=== PATIENT | female | born 1980 | race Caucasian/White ===

== ENCOUNTER 2023-03-20 11:25 | Inpatient (IN) | payer OTHER, SELFPAY ==
[2023-03-20] VITALS (13 sets, daily range): BP systolic 100–141; BP diastolic 52–83; PULSE 61–98; RESP 16–20; TEMP 36.1–36.7; O2SAT 93–97
[2023-03-20] MEDS: Lactated Ringers 1,000 ML 999 ML IV (11:40)
--- NOTE | 2023-03-20 11:45 | HP.PCM.OB_ITS ---
HPI - General General Date of Admission: 03/20/23 HPI Narrative TAB CORNEJO, is a 42 y/o @ 38 weeks 3 days (based on us and LMP) who presents to L&D in active labor and history of prior section, no care in [place]. Pt states that she tried calling different doctor's offices when she moved from [place] and no one would take her because she was too late or offices were already at max capacity for March deliveries. She had a prior section for face presentation. No op note is available. Pt is yelling and crying in extreme pain and asking for us to knock her out or give her an epidural. Between contractions she is able to tell us that she found a dula for her pregn katelyn since a doctor's office would not take her. She does not have a plan for however. PFSH PFSH Allergy/AdvReac Type Severity Reaction Status Date / Time gabapentin Allergy Rash Verified 03/20/23 11:51 ROS Constitutional Constitutional: Denies change in weight, fatigue, fever(s), headache(s), poor appetite or weakness Eyes Eyes: Denies blurry vision, change in vision, seeing flashes or spots in vision ENT HEENT: Denies dizziness, headache(s), loss taste/smell or sore throat Cardiovascular Cardiovascular: Denies chest pain, dizziness, dyspnea, irregular heart rhythm, leg edema, palpitations, rapid heart rate or vomiting Respiratory/Chest Respiratory/Chest: Denies chest tightness, cough, dyspnea or breast pain Gastrointestinal Gastrointestinal: Denies abdominal pain, anorexia, constipation, cramping, diarrhea, hemorrhoids, vomiting or weight changes Genitourinary Genitourinary: Denies dysuria, flank pain, genital lesions, genital pain, urinary frequency or urinary urgency Musculoskeletal Musculoskeletal: Denies back pain, difficulty walking, joint pain, limited range of motion, muscle cramps or numbness Integumentary Integumentary: Denies lesions or unusual bruising Neurologic Neurologic: Denies abnormal movements, abnormal speech, dizziness, numbness, seizure-like activity or syncope Psychiatric Psychiatric: Denies anxiety, behavioral changes, change in appetite, change in libido, cognitive impairment, confusion, depression, difficulty concentrating, hallucinations or suicidal thoughts Endocrine Endocrinology: Denies excessive sweating, polydipsia or polyuria Hematologic/Lymphatic Hematologic/Lymphatic: Denies easy bleeding, easy bruising or lymphadenopathy Allergic/Immunologic Allergic/Immunologic: Denies itchy eyes, lip swelling, seasonal rhinorrhea, rhinitis, throat swelling, tongue swelling, eczemia, wheezing or asthma Physical Exam Const alert, oriented x3, no apparent distress and healthy appearing General Appearance: cooperative; Negative for anxious HEENT normocephalic Face and Sinus: normal facial exam Eyes EOMs intact bilaterally and no scleral icterus General Eye: normal appearance of both eyes Neck full ROM and supple Lymph Lymphatic: no lymphadenopathy noted Chest Chest: abnormal inspection of the chest Resp normal respiratory effort Effort and Inspection: able to speak in complete sentences Cardio regular rate GI soft to palpation and non-tender Inspection: gravid Palpation: soft; Negative for tender external exam normal Amniotic Fluid: other cx is 1.5/70/-1 vertex on bedside scan. Back/Spine no CVA tenderness Extremity normal to inspection, full ROM and no clubbing, cyanosis or edema General Extremity: Negative for calf tenderness or edema Skin Lesions: no lesions Rashes: no rashes Psych mental status grossly normal Labs Labs Labs: No Data to Display Assessment & Plan (1) History of section complicating : (2) Poor patient attendance of care: (3) 38 weeks gestation of : (4) Active labor at term: PLAN: Plan Plan for urgent section now for active painful labor and unknown uterine scar, remote from delivery with suspicion for either a low pain tolerance or uterine rupture/abruption based on pain. The tracing at this time is reassuring and contractions are q 2 minutes apart. -ancef 2 grams ordered - will need ob labs and peds at delivery -pt denies h/o drug use
[2023-03-20] MEDS: Cefazolin 2 GM in 0.9% Normal Saline 100 ML IV (12:12)
[2023-03-20 12:27] LABS: Absolute Lymphocyte Count 2.09 X10^3/uL (0.83-4.51); Absolute Neutrophil Count 6.7 X10^3/uL (2.0-7.7); Basophil# 0.05 X10^3/uL; Basophil% 0.5 % (0-1); Eosinophil# 0.04 X10^3/uL; Eosinophils% 0.4 % (0-5); Hemoglobin 14.5 g/dL (12.0-15.0); Lymphocyte # 2.09 X10^3/ul (0.83-4.51); Lymphocyte % 21.7 % (19-41); Mean Corp Hgb Conc 32.2 g/dL (32-36); Mean Corpuscular Hgb 30.8 pg (27.0-32.0); Mean Corpuscular Volume 95.5 fL (81-99); Mean Platelet Vol. 11.9 fl (6.2-12.0); Monocyte# 0.66 X10^3/uL; Monocyte% 6.8 % (0-10); NRBC Flagged by Analyzer 0 % (0-5); Neutrophil # 6.66 X10^3/uL (2.7-7.7); Neutrophil % 69.1 % (47-70); Platelet Count 204 K/mm3 (150-450); RBC Distribution Width CV 13.6 % (11.6-14.6); RBC Distribution Width SD 47.9 fl (35.1-43.9); Red Blood Count 4.71 M/mm3 (4.2-5.4); White Blood Count 9.6 K/mm3 (4.4-11.0)
--- NOTE | 2023-03-20 12:59 | EX.PCM.OBRPT ---
Assessment & Plan (1) Active labor at term: (2) 38 weeks gestation of : (3) Poor patient attendance of care: (4) History of section complicating : Details Operative Information Date of Procedure: 03/20/23 Pre-Operative Diagnosis: 42 y/o @ 38 weeks 3 days, limited care, prior section, painful contractions Post-Operative Diagnosis: 42 y/o @ 38 weeks 3 days, limited care, prior section, painful contractions Classification: DISHA Procedure Type: low transverse iron setter #1: Fernanda Gavin Type of Anesthesia: General Antibiotic Given: Ancef 2 grams IV x1 Drain: Blake to straight drain Estimated Blood Loss: 400cc Findings Description of Procedure: The patient presented to labor and delivery with painful contractions every 1-2 minutes. She did not have care in our community and stated that she moved here from [place] and could not find a doctor. Her plan was to have a dula help her at home until she went into labor and her plan was to go to the nearest hospital for a repeat section. She was screaming in pain and asking for help over an over while holding her lower abdomen. She requested that someone would push on her lower abdomen for relief. The tracing was a category 1 and her cervix was noted to be 1.5 cm dilated, 70% effaced and -1 station, however due to her pain the suspicion for uterine rupture or abruption could not be ruled out. Bedside scan was performed and was inconclusive for seeing the lower uterine segment clear enough due to the patient pain level and inability to lay flat and still. A vertex presentation was noted. Her gestational age was determined by an early ultrasound and consistent with her LMP, per the patient, while in [place]. The decision was to proceed urgent to the operating room for a section. Surgery details: The patient was placed in the dorsal supine position with leftward tilt. A blake catheter was placed. Patient was prepped and draped with a splash of betadine covering the abdomen and vagina. General anesthesia was administered and a Pfannenstiel skin incision was made with the scalpel and carried through to the underlying layer of fascia with the scalpel. Fascia was carefully incised using the same scalpel. The rectus bellies were dissected off superiorly and inferiorly with out complication both sharply and bluntly. The peritoneum was entered digitally. The incision was stretched slightly and a bladder flap was created and dissected. A low transverse uterine incision was made approximately 4 cm higher than the bladder dissection with the scalpel. The 's head was delivered atraumatically followed by the anterior and posterior shoulders without complication the rest of the delivered. The cord was clamped and cut and the infant was handed off to awaiting nurse. The placenta was delivered spontaneously immediately following and was noted to be intact and have a three-vessel cord. The uterus was exteriorized cleared of all clots and debris, and the incision was closed in a double layer closure using #1 Vicryl and #1 Monocryl. The ovaries and fallopian tubes were noted to be within normal limits. Clots and debris were removed from the lower pelvis and there was noted to be a tear 4 cm inferior to the uterine incision and closer site. The tear was noted in the peritoneium overlying the bladder and with further careful inspection there was noted to be a tear that was less than a millimeter in size. The bladder tear was repaired with a 3-0 vicryl figure of 8 fashion followed by an imbricated suture. The peritoneum was repaired using a 3-0 vicryl over the bladder site and the bladder was back filled with sterile saline. The bladder was noted to be water tight. The uterus was returned to the maternal abdomen and gutters were cleared of all clots and debris. The peritoneum was closed with 3-0 Monocryl in a running fashion. Gloves were changed prior to fascial closure. Fascia was closed with 0 PDS in a running fashion. Subcutaneous tissue was copiously irrigated and the skin was closed with 3-0 Monocryl in a subcuticular fashion. Mepilex dressing was applied without complication. Patient was taken to recovery in stable condition. It was discussed with the patient that based on the clinical information obtained during this encounter, combined with her history, at this time I would recommend professional care and repeat section for future deliveries if further pregnancies are desired. Presentation: Positive for Vertex Amniotic Membrane Rupture Type: Artificial Amniotic Fluid Description: Clear Placental Delivery Description: Manual Removal Placenta Disposition: Sent to Pathology Cord Vessel Description: 3 Vessels Cord Entanglement: None A Gender: Female (1 minute): 8 (5 minute): 9 Complications Risks of Surgery Discussed w/Patient: Bleeding, Anesthesia Risks, Infection and Injury to surrounding structure(s) including bowel and bladder Multi Select Codes Urinary/Genital Urinary/Genital CPT Codes: 41659 delivery only
[2023-03-20] MEDS: Oxytocin 15 Units/NS 250ml 15 UNITS/250 ML IV.SOLN 83 UNITS IV (13:25)
[2023-03-20] MEDS: Ketorolac 30 MG/ML Syringe IV ×2 (13:47→19:54)
[2023-03-20] MEDS: 0.9% Saline Lock 10 ML Syringe IV ×2 (13:47→13:52)
[2023-03-20] MEDS: Acetaminophen 500 MG Tablet 1000 MG PO ×2 (13:48→19:53)
[2023-03-20] MEDS: HYDROmorphone 1 MG/ML Syringe IV ×2 (13:52→17:17)
[2023-03-20] MEDS: Lactated Ringers 1,000 ML 150 ML IV (16:35)
--- NOTE | 2023-03-20 17:46 | NURSING ---
1744-hx of thc use during college years, and has medical marijuana use card was using this for her neck prior to last use 2021 prior to
[2023-03-20 18:38] LABS: Syphilis Antibodies Non-reactive
[2023-03-20 19:00] LABS: Hepatitis C Antibody Non-Reactive (Nonreactive)
[2023-03-20] MEDS: Lactated Ringers 1,000 ML 100 ML IV (19:53)
[2023-03-20] MEDS: Nitrofurantoin Macrocrystals 100 MG Capsule PO (20:44)
[2023-03-20] MEDS: Senna/Docusate Sodium 1 Tablet PO (22:34)
[2023-03-20] MEDS: oxyCODONE 5 MG Tablet PO (22:35)
[2023-03-21 00:20] VITALS: BP 113/70; PULSE 67; RESP 20
[2023-03-21] MEDS: Acetaminophen 500 MG Tablet 1000 MG PO ×4 (02:08→19:52)
[2023-03-21] MEDS: Ketorolac 30 MG/ML Syringe IV (02:09)
[2023-03-21 05:23] VITALS: BP 113/64; PULSE 64; RESP 18
[2023-03-21 05:41] LABS: Hemoglobin 11.5 g/dL (12.0-15.0); Mean Corp Hgb Conc 33.8 g/dL (32-36); Mean Corpuscular Hgb 30.7 pg (27.0-32.0); Mean Corpuscular Volume 90.9 fL (81-99); Mean Platelet Vol. 11.5 fl (6.2-12.0); Platelet Count 192 K/mm3 (150-450); RBC Distribution Width CV 13.6 % (11.6-14.6); RBC Distribution Width SD 44.8 fl (35.1-43.9); Red Blood Count 3.74 M/mm3 (4.2-5.4); White Blood Count 13.5 K/mm3 (4.4-11.0)
--- NOTE | 2023-03-21 08:46 | PCM.PN.OB ---
Subjective Subjective Patient is laying in bed comfortably without complaints. She states that she slept on an off during the night. Lochia is mild and pain is minimal. The situation with her bladder was discussed and patient states that she feels much more comfortable knowing what happened. Objective Data Objective Data Vital Signs: Vital Signs Temp Pulse Resp BP Pulse Ox O2 Del Method 97.3 F L 77 18 100/55 L 96 Room Air 03/22/23 01:19 03/22/23 01:19 03/22/23 01:19 03/22/23 01:19 03/22/23 01:19 03/22/23 01:19 Oxygen Delivery Method Room Air Intake & Output: Intake and Output for Last 24 Hours 03/20/23 03/21/23 03/22/23 23:59 23:59 23:59 Intake Total 3002.5 / 3002.5 1042.5 / 1042.5 Output Total 995 / 995 5700 / 5700 500 / 500 Balance 2006.5 / 2006.5 -4657.5 / -4657.5 -500 / -500 Lab / Micro Data Result Diagrams: 03/21/23 05:30 ROS Constitutional Constitutional: Reports systems reviewed and no addt'l complaints, except as documented Cardiovascular Cardiovascular: Denies chest pain, dizziness, dyspnea or irregular heart rhythm Respiratory/Chest Respiratory/Chest: Denies cough, pain on inspiration or shortness of breath at rest Gastrointestinal Gastrointestinal: Denies abdominal pain, nausea or vomiting Genitourinary Genitourinary: Denies burning urination Musculoskeletal Musculoskeletal: Denies muscle cramps, muscle spasms or muscle weakness Neurologic Neurologic: Denies confusion, dizziness, headache(s) or lack of coordination Psychiatric Psychiatric: Denies anxiety, behavioral changes or depression Physical Exam HEENT normocephalic Resp normal respiratory effort and normal air movement GI soft to palpation, non-tender and non-distended Rectal Exam: other Other Details: Incision is clean, dry, and intact no CVA tenderness Extremity normal to inspection General Extremity: edema bilateral (trace ) Assessment & Plan (1) History of section complicating : (2) Poor patient attendance of care: (3) Active labor at term: (4) 38 weeks gestation of : (5) Status post delivery: COMMENT: bladder rupture during labor- catheter in place until cystogram at 10 days post PLAN: Plan s/p LTCS PPD # 1 1. routine post care. maintain blake 2. breast feeding- support given 3. rh positive 4. rubella immune
[2023-03-21 09:12] VITALS: BP 105/61; PULSE 69; RESP 16; TEMP 37.1; O2SAT 95
[2023-03-21] MEDS: Senna/Docusate Sodium 1 Tablet PO (09:24)
[2023-03-21] MEDS: Nitrofurantoin Macrocrystals 100 MG Capsule PO (09:24)
[2023-03-21] MEDS: 0.9% Saline Lock 10 ML Syringe IV (09:25)
[2023-03-21] MEDS: Naproxen 500 MG Tablet PO ×2 (09:58→18:33)
[2023-03-21 11:04] VITALS: BP 105/59; PULSE 75; RESP 18; TEMP 36.5; O2SAT 96
[2023-03-21 13:08] VITALS: BP 105/50; PULSE 69; RESP 18; TEMP 37.3; O2SAT 96
[2023-03-21] MEDS: oxyCODONE 5 MG Tablet PO (13:29)
[2023-03-21 19:57] VITALS: BP 129/72; PULSE 74; RESP 18; TEMP 36.7; O2SAT 96
[2023-03-22] MEDS: oxyCODONE 5 MG Tablet PO ×5 (01:07→23:07)
[2023-03-22 01:19] VITALS: BP 100/55; PULSE 77; RESP 18; TEMP 36.3; O2SAT 96
[2023-03-22] MEDS: Acetaminophen 500 MG Tablet 1000 MG PO ×4 (01:32→20:54)
[2023-03-22] MEDS: Naproxen 500 MG Tablet PO ×3 (01:33→18:34)
[2023-03-22] MEDS: Nitrofurantoin Macrocrystals 100 MG Capsule PO (08:41)
[2023-03-22] MEDS: Senna/Docusate Sodium 1 Tablet PO (08:41)
[2023-03-22] MEDS: MENTHOL 226.8 GM JAR 1 APPLIC TOPICAL (08:43)
[2023-03-22 08:47] VITALS: BP 97/58; PULSE 89; RESP 18; TEMP 37.1; O2SAT 97
--- NOTE | 2023-03-22 08:48 | PCM.PN.OB ---
Subjective Subjective Patient is laying in bed comfortably without complaints. She states that she slept on an off during the night. Lochia is mild and pain is minimal. She wants to stay another night due to right lower quadrant fascial site pain. Her also has a sore throat, vomiting, and diarrhea and can not help take care of her or baby Objective Data Objective Data Vital Signs: Vital Signs Temp Pulse Resp BP Pulse Ox O2 Del Method 98.7 F 89 18 97/58 L 97 Room Air 03/22/23 08:47 03/22/23 08:47 03/22/23 08:47 03/22/23 08:47 03/22/23 08:47 03/22/23 08:47 Oxygen Delivery Method Room Air Intake & Output: Intake and Output for Last 24 Hours 03/20/23 03/21/23 03/22/23 23:59 23:59 23:59 Intake Total 3002.5 / 3002.5 1042.5 / 1042.5 Output Total 995 / 995 5700 / 5700 500 / 500 Balance 2006. / 2006.5 -4657.5 / -4657.5 -500 / -500 Lab / Micro Data Result Diagrams: 03/21/23 05:30 ROS Constitutional Constitutional: Reports systems reviewed and no addt'l complaints, except as documented Cardiovascular Cardiovascular: Denies chest pain, dizziness, dyspnea or irregular heart rhythm Respiratory/Chest Respiratory/Chest: Denies cough, pain on inspiration or shortness of breath at rest Gastrointestinal Gastrointestinal: Denies abdominal pain, nausea or vomiting Genitourinary Genitourinary: Denies burning urination Musculoskeletal Musculoskeletal: Denies muscle cramps, muscle spasms or muscle weakness Neurologic Neurologic: Denies confusion, dizziness, headache(s) or lack of coordination Psychiatric Psychiatric: Denies anxiety, behavioral changes or depression Physical Exam HEENT normocephalic Resp normal respiratory effort and normal air movement GI soft to palpation, non-tender and non-distended Rectal Exam: other Other Details: Incision is clean, dry, and intact no CVA tenderness Extremity normal to inspection General Extremity: edema bilateral (trace ) Assessment & Plan (1) Status post delivery: COMMENT: bladder rupture during labor- catheter in place until cystogram at 10 days post (2) History of section complicating : (3) Poor patient attendance of care: (4) 38 weeks gestation of : (5) Active labor at term: PLAN: Plan s/p LTCS PPD #2 1. routine post care 2. breast feeding- support given 3. rh positive 4. rubella immune 5. maintain blake, will order cystogram in 9 days 6. dc to home tomorrow 7. use of ice and percocet/motrin for pain.
[2023-03-22 15:00] VITALS: BP 118/71; PULSE 83; RESP 16; TEMP 36.1; O2SAT 96
[2023-03-22 21:15] VITALS: BP 113/68; PULSE 80; RESP 14; TEMP 36.5
[2023-03-23] MEDS: Naproxen 500 MG Tablet PO ×3 (02:01→18:20)
[2023-03-23] MEDS: Acetaminophen 500 MG Tablet 1000 MG PO ×3 (02:04→15:14)
[2023-03-23 04:37] VITALS: BP 120/66; PULSE 71; RESP 18; TEMP 36.4
[2023-03-23] MEDS: oxyCODONE 5 MG Tablet PO ×4 (05:26→18:21)
--- NOTE | 2023-03-23 07:29 | PCM.DC.SUM ---
Providers Date of Admission: 03/20/23 Reason For Visit: REPEAT SECTION Diagnosis Discharge Diagnosis (1) Status post delivery: Status: Acute Code(s): Z98.891 - History of uterine scar from previous surgery (2) History of section complicating : Status: Acute Code(s): O34.219 - Maternal care for unspecified type scar from previous delivery (3) Poor patient attendance of care: Status: Acute Code(s): O09.30 - Supervision of with insufficient care, unspecified trimester (4) 38 weeks gestation of : Status: Acute Code(s): Z3A.38 - 38 weeks gestation of (5) Active labor at term: Status: Acute Plan s/p LTCS PPD #2 1. routine post care 2. breast feeding- support given 3. rh positive 4. rubella immune 5. maintain blake, will order cystogram in 9 days 6. dc to home tomorrow 7. use of ice and percocet/motrin for pain. Medications at Discharge Home Medications Vitamin 1 tab PO.IVFORM DAILY 03/20/23 Hospital Course Operations section Summary of Care Provided Minutes Spent on Discharge: 30 Hospital Course: The patient was admitted for a repeat section on 03/20/2023. She did not have care with us and presented with severe pain. The section was unremarkable until the uterus was closed and there was noted to be a spontaneous bladder rupture from labor. This was repaired without difficulty and recovered well with no complications. On day #1 she was not tolerating pain well and was given oxycodone and motrin around the clock. On day #2 she continued to have pain and did not want to be discharged. On post op day #3 she was tolerating her pain better and was ready to go home. Physical Exam HEENT normocephalic Resp normal respiratory effort and normal air movement GI soft to palpation, non-tender and non-distended Rectal Exam: other Other Details: Incision is clean, dry, and intact no CVA tenderness Extremity normal to inspection General Extremity: edema bilateral (trace ) ABG / Lab / Microbiology Data Result Diagrams: 03/21/23 05:30 D/C Instructions Discharge Diet: No restrictions May resume sexual activity in: 4-6 weeks Weight Bearing Status: Full weight bearing Call your doctor if your incision/area has: Continuous Slow Oozing, Sudden Increased Bleeding, Increased Pain/ Swelling, Increased Redness and Foul Smelling Discharge Call your doctor if you observe: Fever of 101 or Higher and Using more than 1 pad per hour Suture Line Care: Avoid Pulling/Pushing and Avoid Pinching/Bending Cleanse incision/area with: Soap & Water and Keep Dressing Clean & Dry Please Follow Up With: Shahida Landrum, When: Call [phone] to make an appointment for an incision check in 1-2 weeks. Meaningful Use Info Meaningful Use Diagnoses (Choose all that apply): None applicable Discharge Plan Admission Admit Date/Time: 03/20/23 11:25 Attending Provider: Shahida Landrum Discharge Orders/Prescriptions Prescriptions: No Action Vitamin 1 tab PO.IVFORM DAILY
--- NOTE | 2023-03-23 07:33 | PCM.DC ---
Discharge Instructions Diet Discharge Diet: No restrictions Activity Discharge Activity: May Not Drive (for 2 weeks or while taking narcotic pain medications.), May Shower and May Take a Tub Bath (in 7 days.) May resume sexual activity in: 4-6 weeks Weight Bearing Status: Full weight bearing Lifting Restrictions: 20 pounds Dressing / Incision Call your doctor if your incision/area has: Continuous Slow Oozing, Sudden Increased Bleeding, Increased Pain/ Swelling, Increased Redness and Foul Smelling Discharge Call your doctor if you observe: Fever of 101 or Higher and Using more than 1 pad per hour Suture Line Care: Avoid Pulling/Pushing and Avoid Pinching/Bending Cleanse incision/area with: Soap & Water and Keep Dressing Clean & Dry Follow Up Care Please Follow Up With: Shahida Landrum DO When: Call [phone] to make an appointment for an incision check in 1-2 weeks. Test Results: Test results from this visit will be discussed in further detail at your follow-up appointment, if applicable. Discharge Plan Admission Admit Date/Time: 03/20/23 11:25 Primary Reason for Your Visit: section Attending Provider: Shahida Landrum Discharge Orders/Prescriptions Prescriptions: New oxycodone-acetaminophen [Percocet] 5-325 mg tablet 1 tab PO Q4H PRN (Reason: pain) 7 Days Qty: 40 0RF Rx Instructions: 1-2 tabs q 4 hrs as needed for pain naproxen 500 mg tablet 500 mg PO BID PRN (Reason: pain) Qty: 30 0RF nitrofurantoin monohyd/m-cryst [Macrobid] 100 mg capsule 100 mg PO DAILY Qty: 10 0RF Rx Instructions: must administer with a meal/food sertraline [Zoloft] 50 mg tablet 50 mg PO DAILY Qty: 90 0RF phenazopyridine [Pyridium] 200 mg tablet 200 mg PO TID PRN (Reason: pain) Qty: 30 0RF No Action Vitamin 1 tab PO.IVFORM DAILY Disposition Disposition (needs filled in before D/C Order can be placed): Home, Self Care
[2023-03-23 08:00] VITALS: BP 116/67; PULSE 59; RESP 16; TEMP 36.6; O2SAT 98
[2023-03-23] MEDS: Nitrofurantoin Macrocrystals 100 MG Capsule PO (08:53)
[2023-03-23 14:10] VITALS: BP 108/50; PULSE 68; RESP 16; TEMP 36.3; O2SAT 95
[2023-03-23 18:25] VITALS: BP 113/69; PULSE 63; RESP 16; TEMP 36.1
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
== END 2023-03-23 21:05 | disposition home or self-care (01) | DRG 788 ==
PROVIDERS: Admitting Provider Obstetrics & Gynecology; Referring Provider Obstetrics & Gynecology; Visit Provider Obstetrics & Gynecology
DX: O34.219 Maternal care for unspecified type scar from previous cesarean delivery (principal); O09.33 Supervision of pregnancy with insufficient antenatal care, third trimester; Z37.0 Single live birth; Z3A.38 38 weeks gestation of pregnancy
CPT/HCPCS: 59025; 59050; 85025; 85027; 86780; 86803; 86850; 86900; 86901; 99221; J7120; A4216; G0378; J2405

== ENCOUNTER 2023-03-26 16:19 | Emergency (ER) | payer OTHER, SELFPAY ==
[2023-03-26 16:21] VITALS: BP 135/96; PULSE 74; RESP 18; TEMP 35.8; O2SAT 95
--- NOTE | 2023-03-26 16:52 | EDS_ITS ---
HPI History of Present Illness Chief Complaint: Diarrhea Informant: patient Onset/Context/Timing Onset: Yesterday Context: Sudden Onset Timing: Continuous Quality: Watery Location: Diarrhea Worsened by: Nothing Relieved by: Nothing Narrative Narrative: Patient presents with diarrhea that began yesterday. Patient states she had a recent section and a repair of her bladder. Patient states she was placed on antibiotics for urinary tract infection. Patient states she started developing watery diarrhea yesterday. Patient states it has been constant. Patient denies any melena or hematochezia. Patient had a Lara catheter placed since the surgery. Patient did note some blood in her catheter tube yesterday. Patient denies any hematuria today. Patient denies any dysuria. Patient admits to some subjective chills but denies any fevers. Patient states she does have some pain that radiates into her back. Patient states nothing makes her symptoms better nothing makes them worse. [facility] Medical History Celiac disease Cholecystectomy planned Headache IBS (irritable bowel syndrome) depression Home Medications Vitamin 1 tab PO.IVFORM DAILY 03/20/23 [History Last Taken Unknown] naproxen 500 mg tablet 500 mg PO BID PRN pain #30 tabs 03/23/23 [Rx Last Taken Unknown] nitrofurantoin monohydrate/macrocrystals 100 mg capsule (Macrobid) 100 mg PO DAILY #10 caps 03/23/23 [Rx Last Taken Unknown] oxycodone-acetaminophen 5 mg-325 mg tablet (Percocet) 1 tab PO Q4H PRN pain 7 days #40 tabs 03/23/23 [Rx Last Taken Unknown] phenazopyridine 200 mg tablet (Pyridium) 200 mg PO TID PRN pain #30 tabs 03/23/23 [Rx Last Taken Unknown] sertraline 50 mg tablet (Zoloft) 50 mg PO DAILY #90 tabs 03/23/23 [Rx Last Taken Unknown] metronidazole 500 mg tablet 500 mg PO BID 10 days #20 tabs 03/26/23 [Rx Last Taken Unknown] oxycodone-acetaminophen 5 mg-325 mg tablet (Percocet) 1 tab PO Q4H PRN pain 3 days #18 tabs 03/26/23 [Rx Last Taken Unknown] Allergy/AdvReac Type Severity Reaction Status Date / Time gabapentin Allergy Rash Verified 03/26/23 16:24 Surgical History History of surgery [place] teeth extracted Social History Smoking Status: Former smoker ROS ROS ED Constitutional Constitutional ED: Reports chills and subjective; Denies fever(s) Eyes Eyes: Reports blurry vision; Denies change in vision ENT ENT ED: Denies rhinorrhea or sore throat Cardiovascular Cardiovascular: Denies chest pain or palpitations Respiratory/Chest Respiratory/Chest: Denies cough or dyspnea Gastrointestinal Gastrointestinal: Reports diarrhea and nausea; Denies melena or vomiting Genitourinary Genitourinary ED: Reports hematuria; Denies dysuria Musculoskeletal Musculoskeletal: Reports back pain; Denies neck pain Integumentary Denies abscess or rash Neurologic Neurologic: Denies headache(s) or weakness Allergic/Immunologic Allergic/Immunologic ED: Denies mouth swelling or urticaria EXAM Physical Exam Const Vital Signs: 03/26/23 16:21 03/26/23 16:54 Temperature 96.5 F L 96.5 F L Temperature Source Temporal Temporal Pulse Rate 74 74 Respiratory Rate 18 18 Blood Pressure 135/96 H 135/96 H Blood Pressure Mean 109 109 Pulse Ox 95 98 Oxygen Delivery Method Room Air Room Air Positive well nourished and well developed General Appearance ED: well developed HEENT Reports moist mucous membranes Neck supple and no JVD Resp normal respiratory effort and clear to auscultation bilaterally Cardio regular rate, regular rhythm and no murmurs GI normal to inspection, nondistended, normoactive bowel sounds GI Narrative: There is some tenderness over the lower abdomen along her incision. There is no rebound or guarding noted. Palpation: soft and tender LLQ, RLQ and suprapubic Extremity normal to inspection General Extremety ED: Negative for edema or tenderness General Extremity: Negative for edema Neuro oriented x3, CN's II-XII intact bilaterally and no sensory deficits noted Sensorium / Orientation: alert Motor Exam: strength 5/5 throughout Psych mental status grossly normal Skin no rashes or lesions noted MDM MDM MDM Narrative Medical decision making narrative: Differential diagnosis includes C. difficile diarrhea, electrolyte abnormality, dehydration, urinary tract infection, and gastroenteritis. Patient already has stool cultures ordered and are pending. CBC will be obtained to assess for leukocytosis and anemia. Basic metabolic profile will be obtained to assess for electrolyte abnormality and renal function. Urinalysis will be obtained to assess for urinary tract infection. Lab Data Attestation: I reviewed the patient's lab results. Lab results narrative: CBC was reviewed and was within normal limits. Basic metabolic profile was reviewed and was within normal limits. Anion gap was normal. Urinalysis was reviewed. Leukocyte esterase was 25 with positive nitrite. There were 0-5 white blood cells and 1+ bacteria. Labs: Laboratory Results - last 24 hr 03/26/23 03/26/23 03/26/23 16:35 16:35 18:05 WBC 6.3 RBC 4.48 Hgb 13.5 Hct 42.3 MCV 94.4 MCH 30.1 MCHC 31.9 L RDW Std Deviation 45.5 H RDW Coeff of Candace 13.1 Plt Count 307 MPV 10.6 Immature Gran % (Auto) 1.100 H Neut % (Auto) 72.0 H Lymph % (Auto) 17.2 L [place] % (Auto) 7.0 Eos % (Auto) 2.4 Baso % (Auto) 0.3 Absolute Neuts (auto) 4.6 Absolute Lymphs (auto) 1.09 Nucleated RBC % 0 Sodium 138 Potassium 4.1 Chloride 109 H Carbon Dioxide 22.0 Anion Gap 7 BUN 10 Creatinine 0.71 Est GFR (MDRD) Af Amer 117 Est GFR (MDRD) Non-Af 97 BUN/Creatinine Ratio 14.2 Glucose 87 Calcium 9.0 Urine Color Yellow Urine Clarity Clear Urine pH 5.0 Ur Specific [place] 1.015 Urine Protein Negative Urine Glucose (UA) Normal Urine Ketones Negative Urine Occult Blood 50 H Urine Nitrite Positive H Urine Bilirubin Negative Urine Urobilinogen Normal Ur Leukocyte Esterase 25 H Urine RBC 0-5 SEEN Urine WBC 0-5 SEEN Ur Squamous Epith Cells 0 SEEN Urine Bacteria 1+ Urine Mucus 0 SEEN Treatment and Re-Evaluation :: Patient was given IV fluids. Patient was given Zofran. Patient was given a dose of oxycodone here. Because of the positive nitrites, urine culture was ordered. Patient was feeling better on reevaluation. Case was discussed with Dr. Kumari. She is agreeable with the plan. Patient was instructed to continue the Flagyl as prescribed until gone. Patient was instructed to follow- up with Dr. Kumari next week. Patient understood and was agreeable with the plan. All questions were answered. Discharge Plan Triage Chief Complaint: Diarrhea Other Complaint: General Illness ED Provider: Jason Slulivan Dx/Rx/DC Orders Clinical Impression: Diarrhea, Status post delivery Instructions: ED Diarrhea, Unknown Cause Prescriptions: No Action Vitamin 1 tab PO.IVFORM DAILY oxycodone-acetaminophen [Percocet] 5-325 mg tablet 1 tab PO Q4H PRN (Reason: pain) 7 Days Qty: 40 0RF Rx Instructions: 1-2 tabs q 4 hrs as needed for pain naproxen 500 mg tablet 500 mg PO BID PRN (Reason: pain) Qty: 30 0RF nitrofurantoin monohyd/m-cryst [Macrobid] 100 mg capsule 100 mg PO DAILY Qty: 10 0RF Rx Instructions: must administer with a meal/food sertraline [Zoloft] 50 mg tablet 50 mg PO DAILY Qty: 90 0RF phenazopyridine [Pyridium] 200 mg tablet 200 mg PO TID PRN (Reason: pain) Qty: 30 0RF metronidazole 500 mg tablet 500 mg PO BID 10 Days Qty: 20 0RF oxycodone-acetaminophen [Percocet] 5-325 mg tablet 1 tab PO Q4H PRN (Reason: pain) 3 Days Qty: 18 0RF Primary Care Provider: Care Physician,No Primary Referrals: Shahida Landrum DO [Med Staff - Active Staff] - 5-7 Days Care Physician,No Primary [Primary Care Provider] - Disposition Disposition: Home, Self Care
[2023-03-26 16:54] VITALS: BP 135/96; PULSE 74; RESP 18; TEMP 35.8; O2SAT 98
[2023-03-26] MEDS: 0.9% Normal Saline 1,000 ML 1000 ML IV (17:06)
[2023-03-26 17:28] LABS: Absolute Lymphocyte Count 1.09 X10^3/uL (0.83-4.51); Absolute Neutrophil Count 4.6 X10^3/uL (2.0-7.7); Basophil# 0.02 X10^3/uL; Basophil% 0.3 % (0-1); Eosinophil# 0.15 X10^3/uL; Eosinophils% 2.4 % (0-5); Hematocrit 42.3 % (37-47); Hemoglobin 13.5 g/dL (12.0-15.0); Lymphocyte # 1.09 X10^3/ul (0.83-4.51); Lymphocyte % 17.2 % (19-41); Mean Corp Hgb Conc 31.9 g/dL (32-36); Mean Corpuscular Hgb 30.1 pg (27.0-32.0); Mean Corpuscular Volume 94.4 fL (81-99); Mean Platelet Vol. 10.6 fl (6.2-12.0); Monocyte# 0.44 X10^3/uL; NRBC Flagged by Analyzer 0 % (0-5); Neutrophil # 4.56 X10^3/uL (2.7-7.7); Platelet Count 307 K/mm3 (150-450); RBC Distribution Width CV 13.1 % (11.6-14.6); RBC Distribution Width SD 45.5 fl (35.1-43.9); Red Blood Count 4.48 M/mm3 (4.2-5.4); White Blood Count 6.3 K/mm3 (4.4-11.0)
[2023-03-26 17:34] LABS: Anion Gap 7 (5-15); BUN 10 mg/dL (7-18); BUN/Creat Ratio 14.2 RATIO (10-20); Chloride 109 mmol/L (98-107); Creatinine, Serum 0.71 mg/dL (0.55-1.02); EST Glomerular Filtration Rate 97 mL/min (>60); Est Glom Filt Rate - Afr Amer 117 mL/min (>60); Glucose 87 mg/dL (74-106); Potassium 4.1 mmol/L (3.5-5.1); Sodium Level 138 mmol/L (136-145)
[2023-03-26 18:10] LABS: Mucous, Urine 0 SEEN /hpf (<or=2+); Squamous Epithelial Cells - UA 0 SEEN /hpf (5-10)
[2023-03-26 18:12] LABS: Color, Urine Yellow (Yellow); Glucose, Dipstick Normal (Normal); Ketone-Dipstick Negative (Negative); Leukocyte Esterase-Dipstick 25 /ul (Negative); Nitrite-Dipstick Positive (Negative); Occult Blood-Urine 50 /ul (Negative); Protein-Dipstick Negative (Negative); Specific Gravity, Urine 1.015 (1.002-1.030); Urine Bilirubin Dipstick Negative (Negative); Urine Clarity Clear (Clear); Urine Urobilinogen Normal (Normal)
[2023-03-26 18:35] LABS: Bacteria 1+ /hpf (None Seen); Red Blood Cells-Urine 0-5 SEEN /hpf (0-5); White Blood Cells 0-5 SEEN /hpf (0-5)
[2023-03-26] MEDS: metroNIDAZOLE 500 MG Tablet PO (19:32)
[2023-03-26 19:39] VITALS: BP 134/74; PULSE 62; RESP 15; O2SAT 98
== END 2023-03-26 20:13 | disposition home or self-care (01) ==
PROVIDERS: Emergency Provider Emergency Medicine; Visit Provider Emergency Medicine
DX: R19.7 Diarrhea, unspecified (principal); Z87.891 Personal history of nicotine dependence
CPT/HCPCS: 80048; 81001; 85025; 87077; 87086; 87088; 87186; 96361; 96374; 99283; J7030; A4216; J2405

== ENCOUNTER → 2023-03-26 | Outpatient (CLI) | payer OTHER, SELFPAY | END | disposition home or self-care (01) | LOC: RAD 16:24 | PROVIDERS: Visit Provider Obstetrics & Gynecology | DX: R19.7 Diarrhea, unspecified (principal) | CPT/HCPCS: 87493; 87506 ==

== ENCOUNTER 2023-03-31 17:55 | Emergency (ER) | payer OTHER, SELFPAY ==
[2023-03-31 17:57] VITALS: BP 129/84; PULSE 103; RESP 18; TEMP 36.4; O2SAT 100
--- NOTE | 2023-03-31 18:14 | CT_ITS ---
STUDY: CT ABDOMEN AND PELVIS WITHOUT CONTRAST REASON FOR EXAM: Female, 42 years old. lower abdomnen pain, hematuria RADIATION DOSAGE (If Supplied By Facility): CTDIvol = ( 16.45 ) mGy, DLP = ( 793.89 ) mGycm TECHNIQUE: Transaxial images were obtained from the dome of the diaphragm to the symphysis pubis without oral contrast, and without intravenous contrast. Sagittal and coronal images were reconstructed. Individualized dose optimization techniques were used for this CT. COMPARISON: None. FINDINGS: The visualized lung bases are unremarkable. Heart size is normal. There is a tiny focus of coronary artery calcification. Liver is normal size. There are 2 tiny cysts present. Bile ducts are not dilated. Gallbladder has been removed surgically.. Normal spleen. Normal pancreas. Normal bilateral adrenal glands. Normal right kidney. Normal left kidney. Normal visualized stomach. Nonspecific ileus with diffuse fecal retention in the colon.. The appendix is visualized and appears normal. Normal abdominal aorta. Normal inferior vena cava. Multiple tiny retroperitoneal mesenteric and pericecal nodes likely benign. Uterus is enlarged depressing the dome of the bladder which is incompletely] old. There is a Lara catheter seen within the bladder Normal abdominal wall. Lumbar spine demonstrates mild spondylosis. Grade 1 spondylolisthesis at L4-5. CT/Abdomen/Pelvis without Cont IMPRESSION: No evidence for renal obstruction or mass. Enlarged uterus for age compressing the dome of the bladder Pelvic sonogram would be helpful to exclude the possibility of intrauterine fibroids if clinically warranted Small hepatic cysts. Nonspecific ileus with diffuse fecal retention in the colon. Electronically Signed: Harsha Pittman MD at 19:17 EDT ,
--- NOTE | 2023-03-31 18:15 | EDS_ITS ---
HPI History of Present Illness Chief Complaint: Lara C/O Detail of Chief Complaint: Hematuria Narrative Narrative: Patient presents to the emergency department complaint of hematuria that started about 3 hours ago. Patient states that she is currently being treated for a UTI diagnosed 3 days ago and is currently on Bactrim. Patient denies any fever although she has had some chills and sweats. Patient tells me that she has had a Lara catheter in for the last 11 days when she had a and had small tears in her bladder that were sutured. Patient is scheduled to have an evaluation of her bladder tomorrow and possibly or have the Lara catheter re moved. She has some discomfort in the suprapubic region today since the hematuria started 3 hours ago. She had no nausea or vomiting. She denies any back pain out of the ordinary although she is currently on a muscle relaxer because of some back pain since she was straining during delivery. [facility] Medical History Celiac disease Cholecystectomy planned Headache IBS (irritable bowel syndrome) depression Home Medications naproxen 500 mg tablet 500 mg PO BID PRN pain #30 tabs 03/23/23 [Rx Last Taken Unknown] sertraline 50 mg tablet (Zoloft) 50 mg PO DAILY #90 tabs 03/23/23 [Rx Last Taken Unknown] cyclobenzaprine 5 mg tablet 5 mg PO TID PRN muscle spasm #30 tabs 03/29/23 [Rx Last Taken Unknown] sulfamethoxazole 800 mg-trimethoprim 160 mg tablet 1 tab PO BID 03/31/23 [History Last Taken Unknown] Allergy/AdvReac Type Severity Reaction Status Date / Time gabapentin Allergy Rash Verified 03/31/23 17:59 Surgical History History of surgery [place] teeth extracted Social History Smoking Status: Former smoker ROS ROS ED Review of Systems ROS Unobtainable: other Constitutional Constitutional ED: Reports lethargy; Denies chills, fever(s), sweats or weight loss Eyes Eyes: Denies blurry vision, change in vision or diplopia ENT ENT ED: Denies rhinorrhea or sore throat Cardiovascular Cardiovascular: Denies chest pain, orthopnea or racing heartbeat Respiratory/Chest Respiratory/Chest: Denies cough, dyspnea, dyspnea on exertion, orthopnea or sputum Gastrointestinal Gastrointestinal: Reports abdominal pain; Denies diarrhea, nausea or vomiting Genitourinary Genitourinary ED: Reports hematuria; Denies dysuria or urinary frequency Musculoskeletal Musculoskeletal: Denies arthralgias, back pain, myalgias or neck pain Integumentary Denies abscess, Abrasions or rash Neurologic Neurologic: Denies headache(s) or weakness Psychiatric Psychiatric: Denies anxiety, depression or suicidal thoughts Endocrine Endocrinology: Denies polydipsia, polyphagia or polyuria Hematologic/Lymphatic Hematologic/Lymphatic: Denies easy bleeding, easy bruising or lymphadenopathy Allergic/Immunologic Allergic/Immunologic ED: Denies mouth swelling, tongue swelling or urticaria EXAM Physical Exam Const Vital Signs: 03/31/23 17:57 Temperature 97.5 F L Temperature Source Temporal Pulse Rate 103 H Respiratory Rate 18 Blood Pressure 129/84 H Blood Pressure Mean 99 Pulse Ox 100 Oxygen Delivery Method Room Air Positive well nourished and well developed General Appearance ED: well developed and NAD HEENT Reports TM's clear and moist mucous membranes normocephalic and atraumatic; Negative for trauma or tenderness Tympanic Membrane ED: Yes TM's clear Eyes PERRL and EOMs intact bilaterally General Eye ED: Negative for pale conjunctiva or scleral icterus Neck no lymphadenopathy, supple and no JVD General: Negative for tenderness Chest Wall inspection of chest normal and palpation of chest normal Chest: Negative for tenderness Resp normal respiratory effort and clear to auscultation bilaterally Effort and Inspection: Negative for respiratory distress or pain with movement Auscultation: Negative for rhonchi, wheezes or diminished lung sounds Cardio regular rate, regular rhythm, S1 normal heart sound, S2 normal heart sound and no murmurs Peripheral Pulses: pulses 2+ throughout GI normal to inspection, nondistended, normoactive bowel sounds, soft to palpation, non-distended and no masses GI Narrative: Mild suprapubic tenderness on palpation. There is no rebound, rigidity, or pedal signs. Back/Spine no CVA tenderness and no thoracic nor lumbar tenderness Extremity normal to inspection General Extremety ED: Negative for edema General Extremity: Negative for edema Neuro oriented x3, CN's II-XII intact bilaterally, no sensory deficits noted and gait normal Sensorium / Orientation: awake, alert, oriented to person, oriented to place and oriented to time Motor Exam: strength 5/5 throughout and strength abnormal Psych mental status grossly normal Skin no rashes or lesions noted and no wounds MDM MDM MDM Narrative Medical decision making narrative: Patient presents with hematuria and has Lara catheter in place after having C- section 11 days ago and trauma to her bladder that needed repair. IV line established. CBC with differential obtained showed a WBC count of 3.8 with a hemoglobin 12.9 platelet count of 306. Chemistries unremarkable. Lactate normal. Urinalysis obtained showed red blood cells but no signs of infection. I did review patient's urine culture from March 26 which did grow Enterobacter that was sensitive to Bactrim. Patient also had a CT scan of the abdomen pelvis to evaluate other sources of hematuria such as possibly kidney stone versus extravasation of urine out of the bladder from bladder rupture. Also obtain CT to evaluate placement and location of Lara catheter. CT was read by radiology as no evidence for kidney stone. There was presence of the Lara catheter within the bladder. She was noted to have enlarged uterus which is consistent with recent delivery. While in the department her urine continues to clear in the Lara bag and draining appropriately. I did discuss case with PA on-call for Dr. Kumari who will alert Dr. Armenta about patient's condition. Patient has an appointment tomorrow to have a radiologic procedure to evaluate the bladder suspect this is a retrograde cystogram and then patient is scheduled to have her Lraa catheter removed in 3 days if all looks well. Patient advised to return if fever, worsening abdominal pain, persistent or heavy hematuria or condition should worsen anyway. Etiology of hematuria unclear although suspect may be from irritation from the catheter versus related to the recent UTI. Lab Data Labs: Laboratory Results - last 24 hr 03/31/23 03/31/23 03/31/23 18:25 18:25 18:25 WBC 3.8 L RBC 4.31 Hgb 12.9 Hct 40.1 MCV 93.0 MCH 29.9 MCHC 32.2 RDW Std Deviation 44.4 H RDW Coeff of Candace 13.0 Plt Count 306 MPV 10.1 Immature Gran % (Auto) 0.500 Neut % (Auto) 56.5 Lymph % (Auto) 29.7 [place] % (Auto) 9.8 Eos % (Auto) 2.4 Baso % (Auto) 1.1 H Absolute Neuts (auto) 2.1 Absolute Lymphs (auto) 1.12 Nucleated RBC % 0 Sodium 138 Potassium 4.2 Chloride 104 Carbon Dioxide 27.0 Anion Gap 7 BUN 22 H Creatinine 1.08 H Est GFR (MDRD) Af Amer 72 Est GFR (MDRD) Non-Af 59 L BUN/Creatinine Ratio 20.4 H Glucose 78 Lactic Acid 1.0 Calcium 9.0 Urine Color Urine Clarity Urine pH Ur Specific [place] Urine Protein Urine Glucose (UA) Urine Ketones Urine Occult Blood Urine Nitrite Urine Bilirubin Urine Urobilinogen Ur Leukocyte Esterase Urine RBC Urine WBC Ur Squamous Epith Cells Urine Bacteria Urine Mucus 03/31/23 18:40 WBC RBC Hgb Hct MCV MCH MCHC RDW Std Deviation RDW Coeff of Candace Plt Count MPV Immature Gran % (Auto) Neut % (Auto) Lymph % (Auto) [place] % (Auto) Eos % (Auto) Baso % (Auto) Absolute Neuts (auto) Absolute Lymphs (auto) Nucleated RBC % Sodium Potassium Chloride Carbon Dioxide Anion Gap BUN Creatinine Est GFR (MDRD) Af Amer Est GFR (MDRD) Non-Af BUN/Creatinine Ratio Glucose Lactic Acid Calcium Urine Color Other Urine Clarity Sl. Cloud[place] Urine pH 8.0 Ur Specific [place] 1.015 Urine Protein 30 H Urine Glucose (UA) Normal Urine Ketones Negative Urine Occult Blood 250 H Urine Nitrite Negative Urine Bilirubin Negative Urine Urobilinogen Normal Ur Leukocyte Esterase 25 H Urine RBC > 100 SEEN Urine WBC 0-5 SEEN Ur Squamous Epith Cells 0-5 SEEN Urine Bacteria RARE Urine Mucus 0 SEEN Radiography Diagnostic Testing: Clinical Impression(s) from Imaging Studies Abdomen/Pelvis CT 03/31/23 18:14 IMPRESSION: No evidence for renal obstruction or mass. Enlarged uterus for age compressing the dome of the bladder Pelvic sonogram would be helpful to exclude the possibility of intrauterine fibroids if clinically warranted Small hepatic cysts. Nonspecific ileus with diffuse fecal retention in the colon. Electronically Signed: Harsha Pittman MD at 19:17 EDT Reading Location ID and State: [facility] / [place] , Service support , Discharge Plan Triage Chief Complaint: Lara C/O Other Complaint: Complaint ED Provider: Estefany Bowles Dx/Rx/DC Orders Clinical Impression: Hematuria Instructions: ED Hematuria Prescriptions: No Action naproxen 500 mg tablet 500 mg PO BID PRN (Reason: pain) Qty: 30 0RF sertraline [Zoloft] 50 mg tablet 50 mg PO DAILY Qty: 90 0RF sulfamethoxazole-trimethoprim 800-160 mg tablet 1 tab PO BID Label Comments: TAKE ONE TABLET BY MOUTH TWICE DAILY FOR 3 DAYS cyclobenzaprine 5 mg tablet 5 mg PO TID PRN (Reason: muscle spasm) Qty: 30 0RF Primary Care Provider: Care Physician,No Primary Referrals: Shahida Landrum DO [Med Staff - Active Staff] - 3-5 Days Care Physician,No Primary [Primary Care Provider] - Disposition Disposition: Home, Self Care
[2023-03-31 18:36] LABS: Absolute Lymphocyte Count 1.12 X10^3/uL (0.83-4.51); Absolute Neutrophil Count 2.1 X10^3/uL (2.0-7.7); Basophil# 0.04 X10^3/uL; Basophil% 1.1 % (0-1); Eosinophil# 0.09 X10^3/uL; Eosinophils% 2.4 % (0-5); Hematocrit 40.1 % (37-47); Hemoglobin 12.9 g/dL (12.0-15.0); Lymphocyte # 1.12 X10^3/ul (0.83-4.51); Lymphocyte % 29.7 % (19-41); Mean Corp Hgb Conc 32.2 g/dL (32-36); Mean Corpuscular Hgb 29.9 pg (27.0-32.0); Mean Platelet Vol. 10.1 fl (6.2-12.0); Monocyte# 0.37 X10^3/uL; Monocyte% 9.8 % (0-10); NRBC Flagged by Analyzer 0 % (0-5); Neutrophil # 2.13 X10^3/uL (2.7-7.7); Neutrophil % 56.5 % (47-70); Platelet Count 306 K/mm3 (150-450); RBC Distribution Width SD 44.4 fl (35.1-43.9); Red Blood Count 4.31 M/mm3 (4.2-5.4); White Blood Count 3.8 K/mm3 (4.4-11.0)
[2023-03-31 18:48] LABS: Mucous, Urine 0 SEEN /hpf (<or=2+)
[2023-03-31 18:49] LABS: Anion Gap 7 (5-15); BUN 22 mg/dL (7-18); BUN/Creat Ratio 20.4 RATIO (10-20); Chloride 104 mmol/L (98-107); Creatinine, Serum 1.08 mg/dL (0.55-1.02); EST Glomerular Filtration Rate 59 mL/min (>60); Est Glom Filt Rate - Afr Amer 72 mL/min (>60); Glucose 78 mg/dL (74-106); Potassium 4.2 mmol/L (3.5-5.1); Sodium Level 138 mmol/L (136-145)
[2023-03-31 18:50] LABS: Glucose, Dipstick Normal (Normal); Ketone-Dipstick Negative (Negative); Leukocyte Esterase-Dipstick 25 /ul (Negative); Nitrite-Dipstick Negative (Negative); Occult Blood-Urine 250 /ul (Negative); Protein-Dipstick 30 mg/dl (Negative); Specific Gravity, Urine 1.015 (1.002-1.030); Urine Bilirubin Dipstick Negative (Negative); Urine Clarity Sl. Cloudy (Clear); Urine Urobilinogen Normal (Normal)
[2023-03-31 18:51] LABS: Color, Urine Other (Yellow)
[2023-03-31 18:54] LABS: Red Blood Cells-Urine > 100 SEEN /hpf (0-5)
[2023-03-31 18:55] LABS: Bacteria RARE /hpf (None Seen); Squamous Epithelial Cells - UA 0-5 SEEN /hpf (5-10); White Blood Cells 0-5 SEEN /hpf (0-5)
[2023-03-31 19:18] VITALS: BMI 36.5
== END 2023-03-31 19:50 | disposition home or self-care (01) ==
PROVIDERS: Emergency Provider Emergency Medicine; Visit Provider Emergency Medicine
DX: R31.9 Hematuria, unspecified (principal); Z87.891 Personal history of nicotine dependence
CPT/HCPCS: 74176; 80048; 81001; 83605; 85025; 99282; A4216

== ENCOUNTER → 2023-04-01 | Outpatient (CLI) | payer OTHER, SELFPAY ==
--- NOTE | 2023-04-01 12:25 | RAD_ITS ---
CLINICAL HISTORY: Female, 42 years old. Bladder injury during . PROCEDURE: Cystogram. FLUOROSCOPY TIME (if supplied): (29 seconds) minutes/seconds. 4 images were obtained. 15.81 mGy 2050 mL of contrast installed into the bladder in a retrograde fashion through the indwelling Lara catheter. The radiologist installed the contrast into the bladder. TECHNIQUE: (All elements of maximal sterile barrier technique followed, including US elements as applicable) The bladder is unremarkable. No evidence of bladder leakage. No postvoid residual. RAD/Cystography min 3 Views IMPRESSION: Unremarkable cystogram. Electronically Signed: Corby Mahmood MD at 15:30 EDT ,
== END | disposition home or self-care (01) ==
LOC: RAD 12:21
PROVIDERS: Referring Provider Obstetrics & Gynecology; Visit Provider Obstetrics & Gynecology
DX: N32.89 Other specified disorders of bladder (principal)
CPT/HCPCS: 51600; 74430

== ENCOUNTER → 2023-05-16 | Outpatient (CLI) | payer OTHER, SELFPAY ==
[2023-05-24 15:08] LABS: HPV APTIMA, High Risk Negative (Negative)
== END | disposition home or self-care (01) ==
LOC: LAB 16:54
PROVIDERS: Visit Provider Advanced Practice Midwife
DX: Z01.419 Encounter for gynecological examination (general) (routine) without abnormal findings (principal)
CPT/HCPCS: 87624; 88175; G0145